=== PATIENT | female | born 1975 ===

== ENCOUNTER 2022-09-16 09:13 | Outpatient (REF) | payer OTHER, SELFPAY | END 2022-09-16 09:14 | disposition home or self-care (01) | LOC: HO.HAP 09:13 | PROVIDERS: Visit Provider Otolaryngology | DX: Z13.89 Encounter for screening for other disorder (principal) ==

== ENCOUNTER 2025-01-16 09:58 | Outpatient (REF) | payer SELFPAY ==
--- OUTSIDE RECORDS SUMMARY | 2025-01-16 11:20 | XMS_ITS | Clinical Summary ---
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 12/20/2023 Active Active Problems Problem Noted Date Diagnosed Date Hearing loss, neural 03/12/2024 Overview (03/12/2024): As of 08/17/2017 - Needs hearing aids both ears, doesn't use because they amplify all sounds and don't help her hear conversations Vulvar skin tag 05/26/2022 Overview (03/12/2024): Last Assessment & Plan: Vulvar Excision Reason for excision: Vulvar skin tag The patient was consented for vulvar excision of skin tag. Risks reviewed including bleeding, infection, and hematoma formation. She was placed in dorsal lithotomy position. The area of planned biopsy was prepped with betadine and infiltrated with a total of 1 cc of 0.25% Marcaine. The skin tag was elevated and excised with scissors. Hemostasis was obtained with pressure and silver nitrate. Zinc oxide was applied. The patient tolerated the procedure well. Verbal and written instructions were provided. HERMINIA IBARHIM MD Menorrhagia with regular cycle 04/18/2020 Overview (03/12/2024): Labs 04/2019 suggestive of early menopausal transition. US pending Last Assessment & Plan: She was given Rx for Provear in case bleeding becomes very heavy again. She will call and make an appointment to follow up if this is the case. Mild anemia 09/02/2017 Encounters Date Type Department Care Team Description 01/08/2025 Results Follow-Up Adult Medicine [address] [address] Qi Bravo MD 01/01/2025 2:52 PM EDT - 01/01/2025 11:59 PM EDT Hospital Encounter Radiology Department - [address] [address] Encounter for screening mammogram for breast cancer Discharge Disposition: Home or Self Care from Last 3 Months Immunizations Immunization Administration Dates Next Due Moderna SARS-CoV-2 COVID-19, mRNA, LNP-S, preservative free 02/24/2022,02/18/2021,07/25/2020,2020 Td Tetanus diptheria (Tdvax) 7yo and older 04/27/2001 Tdap Tetanus diptheria acell ular pertussis (Boostrix; Adacel) 7yo and older 07/11/2021,07/13/2011 Surgical History Surgery Date Site/Laterality Comments WISDOM TOOTH EXTRACTION 24 yrs old PROCEDURE: HISTORICAL WISDOM TEETH EXTRACTION; COMMENT: no complications Medical History Medical History Date Comments Hearing loss, neural age 6 DX:Hearing loss, neural; COMMENT: hearing aids both ears Mild anemia 09/02/2017 DX:Mild anemia Family History Medical History Relation Name Comments Other: precancerous breast lesion Aunt Paterna l Diabetes Maternal Grandmother Breast cancer Other pat grandmother 87 Breast cancer Paternal Grandmother Colon cancer Neg Hx Ovarian cancer Neg Hx Pancreatic cancer Neg Hx Prostate cancer Neg Hx Uterine cancer Neg Hx Relation Name Status Comments Aunt Paternal Alive Daughter Quyen Alive A&W Father Alive ?cholesterol Maternal Grandfather (Age 70s) e mphysema Maternal Grandmother Alive DMII Mother Alive depression Other pat grandmother 87 Alive Paternal Grandfather (Age late 7 0s) high cholesterol, CAD Paternal Grandmother Alive Son 1 Corky Alive A&W Son 2 Keegan Alive A&W Social History Tobacco Use Types Packs/Day Years Used Date Smoking Tobacco: Never Smokeless Tobacco: Never Alcohol Use Standard Drinks/Week Comments No 0 (1 standard drink = 0.6 oz pur e alcohol) Comments Unknown Sex and Gender Information Value Date Recorded Sex Assigned at Not on file Legal Sex Female 6:52 AM EST Gender Identity Not on file Sexual Orientation Not on file Obstetrics History Para Term AB IAB SAB Ectopic Multiple Livin g Live Births 3 3 3 3 Date Outcome GA Total Labor Labor/2nd/3rd Weight Sex Type Anes PTL Dian A1 A5 Name Clin Term Term Term Last Filed Vital Signs Vital Sign Reading Time Taken Comments Blood Pressure 108/72 12/20/2023 8:01 AM EDT Pulse 78 12/20/2023 8:01 AM EDT Temperature - - Respiratory Rate - - Oxygen Saturation - - Inhaled Oxygen Concentration - - Weight 97.1 kg (214 lb) 12/20/2023 8:01 AM EDT Height 172.7 cm (5' 8 ) 12/20/2023 8:01 AM EDT Body Mass Index 32.54 12/20/2023 8:01 AM EDT Plan of Treatment Upcoming Encounters Date Type Department Care Team (Late st Contact Info) Description 03/21/2025 2:30 PM EST Office Visit Adult Medicine [address] [phone] Qi Bravo MD [address] [place] [address] Health Maintenance Due Date Last Done Comments Hepatitis B Vaccines (1 of 3 - 19+ 3-dose series) 01/06/1995 HIV Screening 02/14/2022 Hepatitis C Screening 02/14/2022 Social Influencers of Health Screening 02/14/2022 Depression Screening 03/08/2024 12/20/2023 COVID-19 Vaccine ( season) 2024 02/24/2022, 02/18/2021, 07/25/2020, Additional history exists Influenza Vaccine (#1) 2024 Breast Cancer Screening 01/01/2027 01/02/20, 12/23/2023, 12/23/2023, Additional history exists Cervical Cancer Screening: HPV 06/09/2027 06/08/2022 Cholesterol Screening (Lipid Panel) 06/16/2028 06/17/2023 DTaP,Tdap,and Td Vaccines (4 - Td or Tdap) 07/12/2031 07/11/2021, 07/13/2011, 04/27/2001 Colorectal Cancer Screening: Colonoscopy 10/21/2031 10/20/2021 RSV Immunization Adult Patients (1 - 1-dose 75+ series) 01/06/2051 HIB Vaccines Aged Out No longer eligi ble based on patient's age to complete this topic HPV Vaccines Aged Out No longer eligi ble based on patient's age to complete this topic Hepatitis A Vaccines Aged Out No long er eligible based on patient's age to complete this topic IPV Vaccines Aged Out No longer eligi ble based on patient's age to complete this topic MMR Vaccines Aged Out No longer eligi ble based on patient's age to complete this topic Meningococcal ACWY Vaccine Aged Out N o longer eligible based on patient's age to complete this topic Meningococcal B Vaccine Aged Out No l onger eligible based on patient's age to complete this topic Pneumococcal Vaccine: Pediatrics (0 to 5 Years) and At-Risk Patients (6 to 49 Years) Aged Out No longer eligible based on patient's age to complete this topic RSV Immunization Patients Under 20 months Aged Out No longer eligible based on patient's age to complete this topic Varicella Vaccines Aged Out No longer eligible based on patient's age to complete this topic Procedures Procedure Name Priority Date/Time Associated Diagnosis Comments MG MAMMO DIGITAL SCREENING W RANDY BILAT Routine 01/01/2025 3:01 PM EDT Encounter for screening mammogram for breast cancer DEPRESSION SCREENING Routine 12/20/2023 LIPID PANEL Routine 06/17/2023 HPV Routine 06/08/2022 HM COLONOSCOPY Routine 10/20/2021 from Last 3 Months or Most Recently Relevant to Health Maintenance Results * MG Mammo Digital Screening w Randy bilat (01/01/2025 3:01 PM EDT) Anatomical Region Laterality Modality Breast Bilateral Mammography 01/02/2025 6:25 PM EDT Impressions 01/02/2025 6:28 PM EDT No mammographic evidence for malignancy. BI-RADS CATEGORY: 1 - NEGATIVE RECOMMENDATION: Screening bilateral mammogram is recommended in 1 year. Mammo Location: [facility], [address] [place] [address], [id number], . -------- FINAL REPORT -------- Dictated By: Melania Daniels Dictated Date: 01/02/2025 18:25 ET Assigned Physician: Melania Daniels Reviewed and Electronically Signed By: Melania Daniels Signed Date: 01/02/2025 18:28 ET Workstation ID: [id number] Transcribed By: Self Edit Transcribed Date: 01/02/2025 18:25 ET Narrative 01/02/2025 6:28 PM EDT Bilateral screening mammogram. CLINICAL: 49 years old, Female, routine annual exam. COMPARISON: Prior studies, latest from 12/23/2023. TECHNIQUE: Bilateral MLO and CC views were obtained digitally with 2-D C views and 3-D mammogram (digital breast tomosynthesis). Computer-aided detection was utilized in evaluation of this exam (CAD). FINDINGS: There is no evidence of suspicious mass or architectural distortion. No worrisome calcifications are evident. There has been no significant change from prior exam(s). BREAST DENSITY: B - There are scattered areas of fibroglandular density. Procedure Note Melania Daniels MD - 01/02/2025 Bilateral screening mammogram. CLINICAL: 49 years old, Female, routine annual exam. COMPARISON: Prior studies, latest from 12/23/2023. TECHNIQUE: Bilateral MLO and CC views were obtained digitally with 2-D Cviews and 3-D mammogram (digital breast tomosynthesis). Computer-aideddetection was utilized in evaluation of this exam (CAD). FINDINGS: There is no evidence of suspicious mass or architectural distortion. Noworrisome calcifications are evident. There has been no significantchange from prior exam(s). BREAST DENSITY: B - There are scattered areas of fibroglandular density. IMPRESSION: No mammographic evidence for malignancy. BI-RADS CATEGORY: 1 - NEGATIVE RECOMMENDATION: Screening bilateral mammogram is recommended in 1 year. Mammo Location: [facility], [address] [place] [address], [id number], . -------- FINAL REPORT -------- Dictated By: Melania Daniels Dictated Date: 01/02/2025 18:25 ET Assigned Physician: Melania Daniels Reviewed and Electronically Signed By: Melania Daniels Signed Date: 01/02/2025 18:28 ET Workstation ID: [id number] Transcribed By: Self Edit Transcribed Date: 01/02/2025 18:25 ET Qi Bravo MD IMG BI PROCEDURES Final Result * Depression Screening (12/20/2023) [facility] Depression Screening abstracted [facility] Provider HEALTH MAINTENANCE Final Result * (ABNORMAL) Lipid panel (06/17/2023) [facility] LDL/HDL Ratio 3 0 - 4 Triglycerides 76 0 - 150 mg/dL Cholesterol 236(A) 0 - 200 mg/dL HDL 81 >=40 mg/dL LDL Cholesterol 140(A) 0 - 100 mg/dL Blood Venous blood specimen / Unknown Result [facility] Historical Provider LAB BLOOD ORDERABLES Lorena l Result * Cervical Cancer Screening: HPV (06/08/2022) [facility] Cervical Cancer Screening: HPV negative, abstracted Historical Provider HEALTH MAINTENANCE Final Result * Colonoscopy (10/20/2021) Colonoscopy normal, abstracted Anatomical Region Laterality Modality Other us Historical Provider HEALTH MAINTENANCE Final Result from Last 3 Months or Most Recently Relevant to Health Maintenance Insurance [facility] [place] [phone] Care Teams 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
--- OUTSIDE RECORDS SUMMARY | 2025-01-16 11:20 | XMS_ITS | Encounter Summary ---
Author Organization [facility] Address [address] [place] [address] Care Team Providers Care Apartment Assistant Manager Name Role Phone Qi Bravo MD Primary Care Provider [phone] Encounter Details Date Type Department Care Team (Late Contact Info) Description 01/08/2025 Results Follow-Up [address] [phone] Qi Bravo MD [address] [place] [address] Social History Tobacco Use Types Packs/Day Years Used Date Smoking Tobacco: Never Smokeless Tobacco: Never Alcohol Use Standard Drinks/Week Comments No 0 (1 standard drink = 0.6 oz pur e alcohol) Comments Unknown Sex and Gender Information Value Date Recorded Sex Assigned at Not on file Legal Sex Female 6:52 AM EST Gender Identity Not on file Sexual Orientation Not on file documented as of this encounter Plan of Treatment Upcoming Encounters Date Type Department Care Team (Late Contact Info) Description 03/21/2025 2:30 PM EST Office Visit Adult [address] [phone] Qi Bravo MD [address] [place] [address] documented as of this encounter Visit Diagnoses Not on filedocumented in this encounter Care Teams Apartment Assistant Manager Relationship Specialty Start Date End Date Qi Bravo MD [address] [place] [phone] PCP - General Internal Medicine 10/30/21 documented as of this encounter
--- OUTSIDE RECORDS SUMMARY | 2025-01-16 11:20 | XMS_ITS | Data Portability ---
Author Organization [place] [facility], [facility] Address [address] [address] Care Team Providers Care Team Psychologist Name Role Phone CONSUELO KERN Primary Care Provider Assessment Encounter Date Assessment Date Assessment LastModified by Organization Details LastModified Time 01/20/2024 01/20/2024 49-year-old female presents for cerumen removal. Cerumen impaction removed bilaterally. Bilateral tympanic membranes are intact with well aerated middle ear spaces. She will follow-up in 6 months for routine cerumen removal, or sooner with concerns. sherwin Not available 01/20/2024 11:50:43 08/30/2024 08/30/2024 49-year-old female presents for cerumen removal. Cerumen impaction removed bilaterally. Bilateral tympanic membranes are intact with well aerated middle ear spaces. She will follow-up in 6 months for routine cerumen removal, or sooner with concerns. [email or web address] Not available 08/30/2024 15:28:34 Plan of Treatment Reminders Order Date Submit Date Provider Last Modified By Organization Details Last Modified Time Details Appointments Establish ed 15 2024 02:15P M TIA CORTES PA-C Not available Not available Not available Lab None recorded. Referral None recorded. Procedures None recorded. Surgeries None recorded. Imaging None recorded. Medication Orders None recorded. Patient TargetsNo targets recorded. Patient InstructionsNo instructions recorded. Reason for Referral None Reported. Problems Name Problem SNOMED Code Status Onset Date Resolution Date Notes Provider Name and Address Organization Details Recorded Time Sensorine ural hearing loss 94619507 Active 2019 Sensorine ural hearing loss, unilatera l, right ear, with unrestric wagner hearing on the contralat eral side; Note: Date Diagnosed : 06/28/2019 10:59 AM (H90.41) Not Available [facility] 4 03:15:51 Sensorine ural hearing loss of bilateral ears 747141710 Active 2019 Sensorine ural hearing loss, bilateral ; Note: Date Diagnosed : 06/29/2019 4:22 PM (H90.3) Not Available [facility] 4 03:15:50 Impacted cerumen of bilateral ears 74871807852 82645 Active 2021 Impacted cerumen, bilateral ; Note: Date Diagnosed : 08/18/2021 4:23 PM (H61.23) Not Available [facility] 4 03:15:50 Problem Notes None recorded. Procedures Surgical History Date Name Laterality Status Provider Name and Address Organization Details Recorded Time 5 Cerumen removal without microscope bilat completed TIA CORTES PA-C [address] [place] [address], [phone], [facility] 08/30/2024 15:28:03 4 Cerumen removal without microscope bilat completed TIA CORTES PA-C [address] [place] [address], [phone], [facility] [place] 01/20/2024 11:50:18 Imaging Results None recorded. Procedure Notes None recorded. Medical Equipment None Reported. Allergies Allergen ID Allergen Name Allergen Category Reaction Reaction Severity Criticality Documentation Date Start Date Code Code System Note Provider Name and Address Organization Details Recorded Time [id number] penicilli n V potassium medicatio n other Not available Not available 07/20/2023 5 RxNorm React ion: unkno wn, unspe cifie d;; Not Available [facility] 4 01:14:09 Medications Name Sig Start Date Stop Date Status Note LastModified by Organization Details LastModified Time prednison e 10 mg tablet by mouth 08/26 completed Medicatio n ID: [id number] Pr escribed By Name: PATTI Carr Name: prednison e Send Method: E-Prescri bed Subs Allowed: subs OK Specia l Instructi on: Take 6 tabs PO QD X 9 days, then 5 tabs PO QD day 10, 4 tabs day 11, 3 tabs day 12, 2 tabs day 13 and 1 tab day 14 Medica Martin icName: prednison e Not Available Not Available Not Available Vitamin D3 2024 active Not Available Not Available Not Avai lable cholecalc iferol (vit D3) 1,000 unit-bella min K2 (MK4) 100 mcg tablet 1 tablet as needed by oral route. 2024 active Not Available Not Available Not Avai lable Vitals Date Recorded Body height Body mass index (BMI) Body weight Provider Name and Address Organization Details Last Updated DateTime 08/30/2024 172.72 cm 35 kg/m2 874956.25 g Allie Oconnell [place] - [facility] 08/30/2024 15:22:08 Date Recorded Body height Body mass index (BMI) Body weight Provider Name and Address Organization Details Last Updated DateTime 01/20/2024 172.72 cm 31.9 kg/m2 82167.4 g Brendon No MA [facility] 01/20/2024 11:39:48 Social History Question Answer Notes LastModified by Organizat ion Details LastModified Time Tobacco Smoking Status Never Smoker Allie edwards MA - [facility] 08/30/2024 15:22:22 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 None Information not available 08/30/2024 Do You Have Any Pets? Yes Information not available 08/30/2024 Are You Passively Exposed To Smoke? No Information not available 08/30/2024 Are There Any Smokers In Your House? No Information not available 08/30/2024 Sex: Unknown Functional Status Question Answer Note LastModified by Organization Details LastModified Time Do you use any illicit or recreational drugs? No Information not available 08/30/2024 Do you or have you ever used any other forms of tobacco or nicotine? No Information not available 08/30/2024 What is your level of alcohol consumption? None Information not available 08/30/2024 What type of noise exposure are you exposed to? noExposureToExcessiveNoise Infor mation not available 08/30/2024 Mental Status None recorded. Family History Nothing Reported. Medical History Condition Response Allergies/Hayfever Y Heart Problems N Anxiety Y Tonsil Infections N Emphysema N Migraines N Thyroid Problems N COPD N Depression Y Developmental Delay N Glaucoma N Nasal or Sinus Problems N Anemia N Immune System Disorder N Anesthesia Complications N Heart Attack ([place]) N Other Skin Condition N Diabetes N Rhinitis N Bleeding Disorder N Food Allergy N Hearing Loss Y Arthritis Y Hyperlipidemia N Cancer N Stroke N Dementia N Nasal polyps N Asthma N Sleep Disorder N High Cholesterol Y GERD/Reflux N Liver Disease N Headaches N Fibromyalgia N Hypertension N Speech Delay N Kidney Disease N Gynecological HistoryNo gynecological history recorded. Obstetrics History GPAL:G 0 P 0 0 0 0 Past Encounters Encounter ID Performer Location Encounter Start Date Encounter Closed Date Diagnosis/Indication Diagnosis SNOMED-CT Code Diagnosis ICD10 Code Diagnosis IMO Codes Diagnosis Note [id number] TIA CORTES PA-C [facility] [address] [address] 01/20/2024 11:29:28 01/20/2024 11:48:13 Impacted cerumen of bilateral ears 9987329899 049249 H61.23 [id number] TIA CORTES PA-C [facility] [address] [address] 08/30/2024 15:14:02 08/30/2024 15:39:00 Impacted cerumen of bilateral ears 9071424159 442749 H61.23 Health Concerns Section Related Observation LastModified by Organization Detai ls LastModified Time None Recorded Concern Status LastModified by Organization Details LastModified Time None Recorded Advance Directives Directive None Recorded Payers Insurance Date Sequence Insurance Name Policy Number Policy James Covered Member ID James Member ID Guarantor Name 01/20/2024 1 [facility]AN (MEDICAID HMO) [id number] Diallo Richter [id number] Jaci Richter 08/28/2024 1 [facility] (HMO) [id number] Diallo Richter [id number] Jaci Deirdre Richter Notes Date Note Type Note Provider Name and Address Organization Details Recorded Time 01/20/2024 text/html ROS as noted in the [facility] 49-year-old female presents for cerumen removal. History of sensorineural hearing loss since childhood. She is in the process of getting hearing aids through [facility]. No concerns today. DENISE CHARLES MD [address] [place] [address], [phone], [facility] 01/20/2024 21:21:18 08/30/2024 text/html ROS as noted in the [facility] 49-year-old female presents for cerumen removal. History of sensorineural hearing loss since childhood. She has hearing aids through [facility]. No concerns today. MELISSA AVILES MD [address] [place] [address], [phone], [facility] 08/30/2024 17:26:47 OBGyn Episode No OBEpisode recorded.
== END 2025-01-16 09:59 | disposition home or self-care (01) ==
LOC: HO.HAP 09:58
PROVIDERS: PCP Internal Medicine; Visit Provider Internal Medicine
DX: Z13.89 Encounter for screening for other disorder (principal)